=== PATIENT | male | born 1950 | race Caucasian/White ===

== ENCOUNTER 2019-04-06 18:17 | Emergency (ER) | payer OTHER ==
[~2019-04-06] VITALS: Ht 160 cm; Wt 71.8 kg
[2019-04-06 18:30] VITALS: BP 150/106
--- NOTE | 2019-04-06 19:04 | NUR ---
BIB SON C/O LEFT FACE PAIN. FACIAL MASS REMOVED 03/16; KARSTEN DRAIN PLACED. FACIAL PAIN 10/24 & DISCHARGE FROM [facility] :[facility].PMHX--KIDNEY FAILURE (T,TH,SA, DAILYSIS), HTN, OPEN HEART SURGERY .
--- NOTE | 2019-04-06 19:20 | NUR ---
Pt report given to AHMET CANCHOLA. Transfer of care at this time.
--- NOTE | 2019-04-06 21:02 | NUR ---
Dr. Churchill examining patient.
--- NOTE | 2019-04-06 21:05 | NUR ---
DR MOTA AT BEDSIDE PERFORMING PROCEDURE.
[2019-04-06 21:19] VITALS: BP 150/106
--- NOTE | 2019-04-06 21:20 | NUR ---
Patient discharged with v/s stable. Written and verbal after care instructions given and explained. Patient alert, oriented and verbalized understanding of instructions. Ambulatory with steady gait. All questions addressed prior to discharge. ID band removed. Patient advised to follow up with PMD. Rx of PENICILLIN given. Patient educated on indication of medication including possible reaction and side effects. Opportunity to ask questions provided and answered. DISCHARGED BY DR MOTA
== END 2019-04-06 21:20 | disposition home or self-care (01) ==
LOC: MED 18:17
DX: M27.2 Inflammatory conditions of jaws (principal); H92.02 Otalgia, left ear; I12.0 Hypertensive chronic kidney disease with stage 5 chronic kidney disease or end stage renal disease; N18.6 End stage renal disease; Z99.2 Dependence on renal dialysis; Z88.8 Allergy status to other drugs, medicaments and biological substances
CPT/HCPCS: 99283

== ENCOUNTER 2020-09-02 19:36 | Emergency (ER) | payer OTHER ==
[~2020-09-02] VITALS: Ht 157.5 cm; Wt 72.6 kg
[2020-09-02 19:41] VITALS: BP 139/70
[2020-09-02] MEDS ORDERED: HYDROcodone/APAP 5/325 MG 1 TAB TAB PO ONE (20:15)
[2020-09-02 20:38] LABS: BASOPHILS # (AUTO) 0.2 K/uL (0.00-0.22); BASOPHILS % (AUTO) 1.8 % (0.0-2.0); EOSINOPHILS # (AUTO) 0.1 K/uL (0-0.4); HEMATOCRIT 35.5 % (36-52); LYMPHOCYTES # (AUTO) 1.5 K/uL (2.0-11.5); LYMPHOCYTES % (AUTO) 17.4 % (20.5-51.1); MEAN CORPUSCULAR HEMOGLOBIN 31 pg (27-31); MEAN CORPUSCULAR HGB CONC 34 g/dL (33-37); MEAN CORPUSCULAR VOLUME 92.8 fL (80-94); MONOCYTES # (AUTO) 0.8 K/uL (0.8-1.0); MONOCYTES % (AUTO) 9.2 % (1.7-9.3); NEUTROPHILS # (AUTO) 6.1 K/uL (1.8-7.7); NEUTROPHILS % (AUTO) 70.6 % (42.2-75.2); PLATELET COUNT (AUTO) 241 K/uL (140-450); RED BLOOD CELL COUNT(AUTO) 3.83 MIL/uL (4.20-6.10); RED CELL DISTRIBUTION WIDTH 13.5 % (11.6-13.7); WHITE BLOOD COUNT (AUTO) 8.6 K/uL (4.8-10.8)
[2020-09-02 20:43] LABS: ANION GAP 16.2 (8-16); CARBON DIOXIDE 26.6 mmol/L (21-32); POTASSIUM 4.8 mmol/L (3.5-5.1)
[2020-09-02 20:50] LABS: CREATININE 6.2 mg/dL (0.6-1.3)
[2020-09-02] MEDS ORDERED: HYDR-5080 PO (21:23)
[2020-09-02 22:00] VITALS: BP 139/70
== END 2020-09-02 22:00 | disposition home or self-care (01) ==
LOC: MED 19:36
DX: I70.262 Atherosclerosis of native arteries of extremities with gangrene, left leg (principal); I73.9 Peripheral vascular disease, unspecified; I12.0 Hypertensive chronic kidney disease with stage 5 chronic kidney disease or end stage renal disease; N18.6 End stage renal disease
CPT/HCPCS: 36415; 73630; 80048; 85025; 86140; 87040; 99284